=== PATIENT | male | born 1975 | race Caucasian/White ===

== ENCOUNTER 2017-08-04 23:49 | Emergency (ER) | payer MEDICAID ==
[2017-08-05] MEDS ORDERED: CHLORDIAZEPOXIDE 25MG PREPK#6 BTL TAKEHOME ONE (00:04)
[2017-08-05] MEDS ORDERED: chlordiazePOXIDE 25 MG CAP PO ONE (00:04)
--- NOTE | 2017-08-05 00:04 | EDPHY ---
H & P Stated Complaint: ETOH Time Seen by Provider: 08/04/17 23:58 HPI/ROS: Chief Complaint: Alcohol intoxication HPI: 42-year-old male with a history of chronic alcohol use is being brought in for alcohol intoxication. Per EMS report his girlfriend called EMS because she was concerned about the amount of alcohol he has been drinking for the last couple days. 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 Has a history of depression and has been taking his Paxil, but does not take it when he is drinking. Denies being suicidal at this time. No recent illness. No fevers or chills. No nausea or vomiting. ROS: 10 point Review of Systems is negative except as noted in the HPI. PMH: Depression, chronic alcoholic use Social History: No smoking, positive daily heavy alcohol, no recreational drug use Family History: non-contributory Physical Exam: Gen: Awake, Alert, slurred speech, smells of alcohol HEENT: Nose: no rhinorrhea Eyes: PERRLA, EOMI Mouth: Moist mucosa Neck: Supple, no JVD Chest: nontender, lungs clear to auscultation Heart: S1, S2 normal, no murmur Abd: Soft, non-tender, no guarding Back: no CVA tenderness, no midline tenderness Ext: no edema, non-tender Skin: no rash Neuro: CN II-XII intact, Sensation grossly intact, Strength 5/5 in bilateral upper and lower extremities - Personal History Current Tetanus/Diphtheria Vaccine: Unsure Current Tetanus Diphtheria and Acellular Pertussis (TDAP): Unsure - Medical/Surgical History Hx Asthma: No Hx Chronic Respiratory Disease: No Hx Diabetes: No Hx Cardiac Disease: No Hx Renal Disease: No Hx Cirrhosis: No Hx Alcoholism: Yes Hx HIV/AIDS: No Hx Splenectomy or Spleen Trauma: No Other PMH: etoh - Social History Smoking Status: Current every day smoker Constitutional: Initial Vital Signs Temperature (C) 36.7 C 08/04/17 23:52 Heart Rate 101 H 08/04/17 23:52 Respiratory Rate 18 08/04/17 23:52 Blood Pressure 147/99 H 08/04/17 23:52 O2 Sat (%) 94 08/04/17 23:52 O2 Delivery Mode Room Air Allergies/Adverse Reactions: No Known Allergies Allergy (Verified 08/04/17 23:58) Home Medications: Medication Instructions Recorded Paxil 08/04/17 Medical Decision Making ED Course/Re-evaluation: 42-year-old male who is intoxicated. History of alcohol withdrawal seizures. Otherwise his medical screening exam is unremarkable. He is not depressed or suicidal at this time. [facility]. Have ordered a Librium prepack for him to treat his withdrawal symptoms. Departure - Departure Disposition: Home, Routine, Self-Care Clinical Impression: Alcoholic intoxication Condition: Good Instructions: Alcohol Intoxication (ED), Chlordiazepoxide (By mouth) Referrals: NONE *PRIMARY CARE P,. [Primary Care Provider] - As per Instructions
[2017-08-05 00:50] VITALS: BP 145/74
== END 2017-08-05 00:49 | disposition home or self-care (01) ==
LOC: EDUNIT#
DX: F10.129 Alcohol abuse with intoxication, unspecified (principal); F17.200 Nicotine dependence, unspecified, uncomplicated

== ENCOUNTER 2017-08-24 15:43 | Emergency (ER) | payer MEDICAID ==
--- NOTE | 2017-08-24 15:50 | EDPHY ---
H & P Stated Complaint: Sore between 4&5th toes on R;painful,swollen;pt thinks ?bug bite,alos itchy Time Seen by Provider: 08/24/17 15:49 - Personal History Current Tetanus Diphtheria and Acellular Pertussis (TDAP): Yes - Medical/Surgical History Hx Asthma: No Hx Chronic Respiratory Disease: No Hx Diabetes: No Hx Cardiac Disease: No Hx Renal Disease: No Hx Cirrhosis: No Hx Alcoholism: Yes Hx HIV/AIDS: No Hx Splenectomy or Spleen Trauma: No Other PMH: etoh - Social History Smoking Status: Current every day smoker Constitutional: Initial Vital Signs Temperature (C) 36.8 C 08/24/17 15:44 Heart Rate 77 08/24/17 15:44 Respiratory Rate 16 08/24/17 15:44 Blood Pressure 131/82 H 08/24/17 15:44 O2 Sat (%) 97 08/24/17 15:44 O2 Delivery Mode Room Air Allergies/Adverse Reactions: No Known Allergies Allergy (Verified 08/24/17 15:43) Home Medications: Medication Instructions Recorded Paxil 08/04/17 Famotidine [Pepcid 20 MG (OTC)] 20 mg PO DAILY #10 tab 08/24/17 predniSONE 40 mg PO DAILY #10 tab 08/24/17 Medical Decision Making ED Course/Re-evaluation: CHIEF COMPLAINT: Itchiness, possible bug bite or sting HISTORY OF PRESENT ILLNESS: The patient is a 42 y/o male complaining of itchiness and urticaria after a possible bug bite or sting. About an hour ago, he felt a pain in his right 4th toe and believes he may have been bit or stung by an insect. Soon after, he became itchy over most of his body and developed urticaria. He originally presented to urgent care who directed him here. He denies known allergy. He denies difficulty breathing, tightness in his throat, swelling of the tongue, or any other associated symptoms. REVIEW OF SYSTEMS: A 10 point review of systems was performed and is negative with the exception of the elements mentioned in the history of present illness. PHYSICAL EXAM: HR, BP, O2 Sat, RR. Temp noted General Appearance: Alert, well hydrated, appropriate, and non-toxic appearing. Head: Atraumatic without scalp tenderness or obvious injury Eyes: Conjunctival injection. Pupils equal, round, reactive to light and accommodation, EOMI, no trauma. Ears: Clear bilaterally, no perforation, normal landmarks Nose: Atraumatic, no rhinorrhea, clear. Throat: There is no erythema or exudates, no lesions, normal tonsils, mucus membranes moist. Neck: Supple, nontender, no lymphadenopathy. Respiratory: No retractions, no distress, no wheezes, and no accessory muscle use. Lungs are clear to auscultation bilaterally. Cardiovascular: Regular rate and rhythm, no murmurs, rubs, or gallops. Musculoskeletal: Normal active ROM of all extremities, atraumatic. Neurological: Alert, appropriate, and interactive. Skin: Systemic urticaria. Past medical history: Denies Past surgical history: Denies Family history: Non-contributory Social history: at bedside, lives in [place], smoker DIFFERENTIAL DIAGNOSIS: The differential diagnosis included but was not limited to angioedema, anaphylaxis, anaphylactoid reaction, urticarial reaction , and other infectious causes for skin rash. MEDICAL DECISION MAKING: The patient presents with urticaria and itchiness after a presumed bug bite or sting. He denies difficulty breathing, swelling of the throat or mouth, or any other associated symptoms. He denies known allergies. He originally presented to urgent care who directed him here without treating the allergic reaction for possible infection or need for epinephrine. On my exam, he may have a small area of athlete's foot but no other infection indicators. A CBC would not be helpful due to his allergic reaction. He has no respiratory involvement or other indicators for needing epinephrine. Plan for 60 mg prednisone, 50mg Benadryl, and 40mg Pepcid, all PO. 4:15 PM - I reassessed this patient and found his condition had not improved. His had urged him to not itch with his hands and had provided him with the purple topped canister of germicidal wipes to wipe his skin with. It appears the wipes, which are not meant for skin, irritated his rash. I directed him use wash cloths with water to soothe his skin and will reassess. 5:30 PM - I reassessed this patient and found his condition improved. He does not appear to have any lingering issues from the sani-wipes. I feel he is safe to be released. He agrees to this course of action. - Data Points Medications Given: Discontinued Medications Diphenhydramine HCl (Benadryl) 50 mg PO EDNOW ONE Stop: 08/24/17 15:54 Last Admin: 08/24/17 15:58 Dose: 50 mg Famotidine (Pepcid) 40 mg PO EDNOW ONE Stop: 08/24/17 15:54 Last Admin: 08/24/17 15:58 Dose: 40 mg Prednisone (Prednisone) 60 mg PO EDNOW ONE Stop: 08/24/17 15:54 Last Admin: 08/24/17 15:58 Dose: 60 mg Departure - Departure Disposition: Home, Routine, Self-Care Clinical Impression: Urticaria Allergic reaction Qualifiers: Encounter type: initial encounter Qualified Code(s): T78.40XA - Allergy, unspecified, initial encounter Condition: Good Instructions: Urticaria (ED), General Allergic Reaction (ED) Additional Instructions: 1. Please take Pepcid and prednisone as directed. 2. Follow-up with your primary care provider for recurring or lack of improving symptoms. 3. Return to the emergency department for shortness of breath, swelling of your throat or tongue, difficulty breathing, or other worsening of condition. Referrals: Harika Morales PA [Primary Care Provider] - As per Instructions Prescriptions: Famotidine [Pepcid 20 MG (OTC)] 20 mg PO DAILY #10 tab predniSONE 40 mg PO DAILY #10 tab Report Scribed for: Woodrow Griffith Report Scribed by: La Healy Date of Report: 08/24/17 Time of Report: 17:25
[2017-08-24] MEDS ORDERED: predniSONE 20 MG TAB PO ONE (15:53)
[2017-08-24] MEDS ORDERED: diphenhydrAMINE 25 MG CAP PO ONE (15:53)
[2017-08-24] MEDS ORDERED: FAMOTIDINE 20 MG TAB PO ONE (15:53)
[2017-08-24 17:32] VITALS: BP 126/85
== END 2017-08-24 17:32 | disposition home or self-care (01) ==
DX: L50.0 Allergic urticaria (principal); F17.200 Nicotine dependence, unspecified, uncomplicated
CPT/HCPCS: J7512

== ENCOUNTER 2018-03-09 08:42 | Emergency (ER) | payer MEDICAID ==
--- NOTE | 2018-03-09 08:48 | EDPHY ---
H & P Time Seen by Provider: 03/09/18 08:48 HPI/ROS: CHIEF COMPLAINT: Concerned about alcohol withdrawal HISTORY OF PRESENT ILLNESS: The patient is a chronic alcoholic who reports his last drink was 3 days ago. He does believe he a had a seizure 3 days ago. He presents to the ED today the requesting detox. The patient denies any abdominal pain or vomiting. The patient denies any headache, chest pain, lightheadedness or difficulty breathing. The patient denies any additional acute complaints. He does feel slightly tremulous and somewhat anxious. REVIEW OF SYSTEMS: A comprehensive 10 point review of systems is otherwise negative aside from elements mentioned in the history of present illness. Source: Patient - Medical/Surgical History Hx Asthma: No Hx Chronic Respiratory Disease: No Hx Diabetes: No Hx Cardiac Disease: No Hx Renal Disease: No Hx Cirrhosis: No Hx Alcoholism: Yes Hx HIV/AIDS: No Hx Splenectomy or Spleen Trauma: No Other PMH: etoh - Social History Smoking Status: Current every day smoker - Physical Exam Exam: General Appearance: Alert, no distress Eyes: Pupils equal and round no pallor or injection ENT, Mouth: Mucous membranes moist Respiratory: There are no retractions, lungs are clear to auscultation Cardiovascular: Regular rate and rhythm Gastrointestinal: Abdomen is soft and nontender, no masses, bowel sounds normal Neurological: A&O, normal motor function, normal sensory exam Skin: Warm and dry, no rashes Musculoskeletal: Neck is supple nontender Extremities: symmetrical, full range of motion Psychiatric: Patient is oriented X 3, there is no agitation Constitutional: Initial Vital Signs Temperature (C) 36.8 C 03/09/18 08:47 Heart Rate 100 03/09/18 08:47 Respiratory Rate 16 03/09/18 08:47 Blood Pressure 174/100 H 03/09/18 08:47 O2 Sat (%) 96 03/09/18 08:47 O2 Delivery Mode Room Air Allergies/Adverse Reactions: No Known Allergies Allergy (Verified 08/24/17 15:43) Home Medications: Medication Instructions Recorded Paxil 08/04/17 Famotidine [Pepcid 20 MG (OTC)] 20 mg PO DAILY #10 tab 08/24/17 predniSONE 40 mg PO DAILY #10 tab 08/24/17 Medical Decision Making ED Course/Re-evaluation: The patient presents to the ED with concerns about alcohol withdrawal. The patient's CIWA score is 2-3. He is appropriate to be discharged to be [facility]. He will be given a Librium prepack. Departure - Departure Disposition: Home, Routine, Self-Care Clinical Impression: Alcohol withdrawal Condition: Good Instructions: Alcohol Withdrawal (ED) Referrals: [facility] [Outside] - As per Instructions
[2018-03-09 08:49] VITALS: BP 174/100
[2018-03-09] MEDS ORDERED: CHLORDIAZEPOXIDE 25MG PREPK#6 BTL TAKEHOME ONE ×3 (08:51→08:53)
== END 2018-03-09 08:55 | disposition home or self-care (01) ==
LOC: EDUNIT#
DX: F10.230 Alcohol dependence with withdrawal, uncomplicated (principal)

== ENCOUNTER 2018-06-27 02:07 | Emergency (ER) | payer MEDICAID, OTHER | END 2018-06-27 08:31 | disposition home or self-care (01) | DX: F10.250 Alcohol dependence with alcohol-induced psychotic disorder with delusions (principal); F17.200 Nicotine dependence, unspecified, uncomplicated ==